=== PATIENT | female | born 2000 | race American Indian/Alaskan Native ===

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

== ENCOUNTER 2022-03-21 18:26 | Emergency (ER) | payer MEDICAID ==
[2022-03-21] MEDS ORDERED: hydrOXYzine PAMOATE 25 MG CAP PO ONE (19:14)
[2022-03-21] MEDS ORDERED: predniSONE 20 MG TAB PO ONE (19:14)
[2022-03-21] MEDS ORDERED: FAMOTIDINE 20 MG TAB PO ONE (19:14)
--- NOTE | 2022-03-21 19:45 | Emergency Department Report ---
ED Allergic Reaction HPI - General Chief complaint: Allergic Reaction Stated complaint: ALLERGIC REACTION Source: patient Mode of arrival: Ambulatory Limitations: No Limitations - History of Present Illness Initial Comments: Patient is a 21-year-old -[place] female with no past medical history who presents to the ED with complaint of acute onset persistent diffuse itchy erythematous maculopapular urticarial rashes for the last 2 days after eating seafood. Patient states that she took Benadryl for itching but the itching has been persistent especially after the Benadryl wore off. Patient denies swollen lips or tongue, dysphagia, dysphonia, cough, wheezing, chest pain or shortness of breath, nausea and vomiting, diarrhea, abdominal pain, facial swelling, fever or chills. MD Complaint: allergic reaction, hives, other (Diffuse itchy erythematous maculopapular urticarial rashes) -: Sudden, days(s) (2) Exposure: food Symptoms: rash, itching. denies: facial swelling, lip swelling, difficulty swallowing, difficulty breathing, orolingual swelling, hoarseness, syncopy, dizziness, nausea, vomiting, other, abdominal pain Severity: moderate Treatment Prior to Arrival: none Previous Allergy History: none - Related Data Previous Rx's Medication Instructions Recorded Last Taken Type Sulfamethoxazole/Trimethoprim 20 ml PO BID 7 Days udc 06/02/13 Unknown Rx [Bactrim 200-40 mg/5 ml] Acetamin/Codeine 120-12Mg/5 ml 5 ml PO TID PRN 7 Days oz 10/15/13 Unknown Rx [Tylenol/Codeine 120-12 mg/5 ml] Albuterol Mdi (or & Nicu Only) 2 puff IH QID PRN #1 inhalation 06/04/19 Unknown Rx [ProAir HFA Inhaler] 21/Iron Fu/Folic Acid 1 each PO DAILY #30 tablet 10/18/19 Unknown Rx [ Complete Caplet] Lidocain2.5%/Prilocai2.5% [Emla] 1 applic TP ONCE #1 tube 06/22/20 Unknown Rx Ibuprofen [Motrin] 600 mg PO Q8H PRN #30 tablet 03/23/21 Unknown Rx medroxyPROGESTERone ACETATE 10 mg PO DAILY #14 tablet 03/23/21 Unknown Rx [Provera] Fluconazole [Diflucan TAB] 200 mg PO ONCE #2 tablet 03/24/21 Unknown Rx Ondansetron [Zofran Odt] 4 mg PO Q6HR PRN #15 tab.rapdis 03/24/21 Unknown Rx Sulfamethoxazole/Trimethoprim 1 each PO Q12H #20 tablet 03/24/21 Unknown Rx [Bactrim DS TAB] Famotidine [Pepcid] 20 mg PO BID #30 tablet 03/21/22 Unknown Rx Prednisone [predniSONE 10 mg 10 mg PO .TAPER #21 03/21/22 Unknown Rx (6-Day Pack, 21 Tabs)] diphenhydrAMINE [Benadryl CAP] 25 mg PO Q6HR PRN #40 capsule 03/21/22 Unknown Rx Allergies Allergy/AdvReac Type Severity Reaction Status Date / Time No Known Allergies Allergy Verified 10/15/13 03:45 ED Review of Systems ROS: Stated complaint: ALLERGIC REACTION Other details as noted in HPI Constitutional: denies: chills, fever Eyes: denies: eye pain, eye discharge, vision change ENT: denies: ear pain, throat pain Respiratory: denies: cough, shortness of breath, wheezing Cardiovascular: denies: chest pain, palpitations Endocrine: no symptoms reported Gastrointestinal: denies: abdominal pain, nausea, diarrhea Genitourinary: denies: urgency, dysuria, discharge Musculoskeletal: denies: back pain, joint swelling, arthralgia Skin: rash, change in color, pruritus. denies: lesions Neurological: numbness (Diffuse itchy erythematous maculopapular urticarial rashes). denies: headache, weakness, paresthesias Psychiatric: denies: anxiety, depression Hematological/Lymphatic: denies: easy bleeding, easy bruising ED Past Medical Hx - Past Medical History Hx Hypertension: No Hx Heart Attack/AMI: No Hx Congestive Heart Failure: No Hx Diabetes: No Hx Deep Vein Thrombosis: No Hx Liver Disease: No Hx Renal Disease: No Hx Sickle Cell Disease: No Hx Seizures: No Hx Asthma: Yes (last used inhaler a couple of months ago) Hx COPD: No Hx HIV: No - Surgical History Past Surgical History?: No Hx Pacemaker: No Hx Internal Defibrillator: No - Social History Smoking Status: Never Smoker - Medications Home Medications: Home Medications Medication Instructions Recorded Confirmed Last Taken Type Sulfamethoxazole/Trimethoprim 20 ml PO BID 7 Days udc 06/02/13 06/21/20 Unknown Rx [Bactrim 200-40 mg/5 ml] Acetamin/Codeine 120-12Mg/5 ml 5 ml PO TID PRN 7 Days oz 10/15/13 06/21/20 Unknown Rx [Tylenol/Codeine 120-12 mg/5 ml] Albuterol Mdi (or & Nicu Only) 2 puff IH QID PRN #1 inhalation 06/04/19 06/21/20 Unknown Rx [ProAir HFA Inhaler] 21/Iron Fu/Folic Acid 1 each PO DAILY #30 tablet 10/18/19 06/21/20 Unknown Rx [ Complete Caplet] Lidocain2.5%/Prilocai2.5% [Emla] 1 applic TP ONCE #1 tube 06/22/20 Unknown Rx Ibuprofen [Motrin] 600 mg PO Q8H PRN #30 tablet 03/23/21 Unknown Rx medroxyPROGESTERone ACETATE 10 mg PO DAILY #14 tablet 03/23/21 Unknown Rx [Provera] Fluconazole [Diflucan TAB] 200 mg PO ONCE #2 tablet 03/24/21 Unknown Rx Ondansetron [Zofran Odt] 4 mg PO Q6HR PRN #15 tab.rapdis 03/24/21 Unknown Rx Sulfamethoxazole/Trimethoprim 1 each PO Q12H #20 tablet 03/24/21 Unknown Rx [Bactrim DS TAB] Famotidine [Pepcid] 20 mg PO BID #30 tablet 03/21/22 Unknown Rx Prednisone [predniSONE 10 mg 10 mg PO .TAPER #21 03/21/22 Unknown Rx (6-Day Pack, 21 Tabs)] diphenhydrAMINE [Benadryl CAP] 25 mg PO Q6HR PRN #40 capsule 03/21/22 Unknown Rx ED Physical Exam - General Limitations: No Limitations General appearance: alert, in no apparent distress - Head Head exam: Present: atraumatic, normocephalic, normal inspection - Eye Eye exam: Present: normal appearance, PERRL, EOMI Pupils: Present: normal accommodation - ENT ENT exam: Present: normal exam, normal orophraynx, mucous membranes moist, TM's normal bilaterally, normal external ear exam - Neck Neck exam: Present: normal inspection, full ROM. Absent: tenderness - Respiratory Respiratory exam: Present: normal lung sounds bilaterally. Absent: respiratory distress, wheezes, rales, stridor, chest wall tenderness, decreased breath sounds, prolonged expiratory - Cardiovascular Cardiovascular Exam: Present: regular rate, normal rhythm, normal heart sounds. Absent: systolic murmur, diastolic murmur, rubs, gallop - GI/Abdominal GI/Abdominal exam: Present: soft, normal bowel sounds. Absent: tenderness, guarding, rebound, hyperactive bowel sounds - Extremities Exam Extremities exam: Present: normal inspection, full ROM, normal capillary refill - Back Exam Back exam: Present: normal inspection, full ROM. Absent: tenderness, CVA tenderness (R), CVA tenderness (L), vertebral tenderness - Neurological Exam Neurological exam: Present: alert, oriented X3, CN II-XII intact, normal gait, reflexes normal - Psychiatric Psychiatric exam: Present: normal affect, normal mood - Skin Skin exam: Present: warm, dry, intact, rash (Erythematous maculopapular urticarial rashes diffusely, airway intact, no signs of angioedema), erythema, urticaria. Absent: normal color ED Course Vital Signs 03/21/22 18:33 Temperature 97.9 F O2 Sat by Pulse 100 Oximetry ED Medical Decision Making - Medical Decision Making This is a 21-year-old -[place] female with no past medical history who presents to the ED with complaint of acute onset persistent diffuse itchy erythematous maculopapular urticarial rashes for the last 2 days after eating seafood. Patient states that she took Benadryl for itching but the itching has been persistent especially after the Benadryl wore off. In the ED, patient is alert and oriented x3 and is not in any distress. Patient was treated for acute allergic reaction with oral steroids, Vistaril and Pepcid. On reevaluation, the itching resolved and patient was discharged home on prescriptions of oral steroids and Vistaril as well as Pepcid. Patient was advised to follow-up with her primary care physician in 5 to 7 days for reevaluation or return to the ED immediately if symptoms get worse. - Differential Diagnosis Acute allergic reaction; acute urticaria; itching with irritation Critical care attestation.: If time is entered above; I have spent that time in minutes in the direct care of this critically ill patient, excluding procedure time. ED Disposition Clinical Impression: Acute urticaria, Itching with irritation, Allergy to seafood Acute allergic reaction Qualifiers: Encounter type: initial encounter Qualified Code(s): T78.40XA - Allergy, unspecified, initial encounter Disposition: HOME / SELF CARE / HOMELESS Is pt being admited?: No Does the pt Need Aspirin: No Condition: Stable Instructions: Allergies, Adult, [id number]-xb-Huhc, Food Allergy, [id number]-rv-[id number], Hives, Nrjs-[id number], Rash, Adult, [id number] Additional Instructions: Take medication with food, drink plenty of fluids, follow-up with your primary care physician in 5 to 7 days for reevaluation. Return to the ED immediately if symptoms get worse. Prescriptions: diphenhydrAMINE [Benadryl CAP] 25 mg PO Q6HR PRN #40 capsule PRN Reason: Itching Famotidine [Pepcid] 20 mg PO BID #30 tablet Prednisone [predniSONE 10 mg (6-Day Pack, 21 Tabs)] 10 mg PO .TAPER #21 Referrals: [facility] [Provider Group] - 3-5 Days Forms: Work/School Release Form(ED) Time of Disposition: 20:01 Print Language: TURKISH
[2022-03-21 21:13] VITALS: BP 128/86
== END 2022-03-21 20:50 | disposition home or self-care (01) ==
LOC: ED 18:26
DX: T78.1XXA Other adverse food reactions, not elsewhere classified, initial encounter (principal); T78.49XA Other allergy, initial encounter; L29.9 Pruritus, unspecified; L50.9 Urticaria, unspecified; J45.909 Unspecified asthma, uncomplicated; X58.XXXA Exposure to other specified factors, initial encounter
CPT/HCPCS: 99282